=== PATIENT | female | born 1955 | race Caucasian/White ===

== ENCOUNTER 2016-10-09 13:36 | Emergency (ER) | payer SELFPAY ==
[2016-10-09] MEDS ORDERED: KETOROLAC 60 MG/2 ML VIAL IVP STA (14:21)
[2016-10-09] MEDS ORDERED: KETOROLAC 30 MG/ML VIAL ONE (14:51)
[2016-10-09] MEDS ORDERED: DEXAMETHASONE 10 MG/ML VIAL IVP STA (16:39)
[2016-10-09] MEDS ORDERED: DEXAMETHASONE 10 MG/ML VIAL ONE ×2 (16:47→16:52)
== END 2016-10-09 17:02 | disposition home or self-care (01) ==
DX: R07.89 Other chest pain (principal); M54.9 Dorsalgia, unspecified; M25.511 Pain in right shoulder; R51 Headache; F41.9 Anxiety disorder, unspecified; F43.9 Reaction to severe stress, unspecified; I25.2 Old myocardial infarction; F17.200 Nicotine dependence, unspecified, uncomplicated

== ENCOUNTER 2017-09-11 10:31 | Outpatient (CLI) | payer MEDICAID ==
[2017-09-11 11:01] LABS: MEAN CORPUSCULAR HGB CONC 33.8 g/dL (32.0-36.0); MEAN CORPUSCULAR VOLUME 88.8 fL (81.0-99.0); MEAN PLATELET VOLUME 7.4 fL (7.9-10.8); RED BLOOD COUNT 4.67 10^6/uL (4.20-5.40); RED CELL DISTRIBUTION WIDTH 12.6 % (12.0-15.0); WHITE BLOOD COUNT 7.3 x10^3/uL (4.8-10.8)
[2017-09-11 11:18] LABS: ALBUMIN/GLOBULIN RATIO 1.3 (1.0-2.2); ALKALINE PHOSPHATASE 61 IU/L (42-121); ALT ALANINE AMINOTRANSFERASE 22 IU/L (10-60); AST ASPARTATE AMINOTRANSFERASE 18 IU/L (10-42); BILIRUBIN,TOTAL 0.5 mg/dL (0.2-1.0); BUN - BLOOD UREA NITROGEN 14 mg/dL (6-20); CALCIUM 8.8 mg/dL (8.5-10.3); CARBON DIOXIDE - CO2 27 mmol/L (21-32); CHLORIDE 106 mmol/L (101-111); CHOL/HDL RATIO 3.8 (<4.4); CHOLESTEROL 200 mg/dL; CREATININE 0.6 mg/dL (0.4-1.0); GFR - MDRD 102 (>89); GLUCOSE 89 mg/dL (70-100); HDL CHOLESTEROL 52 mg/dL; LDL CHOLESTEROL,CALCULATED 120 mg/dL; LDL/HDL RATIO 2.3 (<4.4); SODIUM 138 mmol/L (135-145); URIC ACID 3.7 mg/dL (2.6-7.2); VLDL CHOLESTEROL 28 mg/dL
[2017-09-11 11:19] LABS: CRP - C-REACTIVE PROTEIN < 1.0 mg/dL (0-1.0)
[2017-09-11 12:04] LABS: RHEUMATOID FACTOR NEGATIVE (Negative)
[2017-09-13 13:56] LABS: ANA SCREEN NEGATIVE (NEGATIVE)
== END 2017-09-11 10:32 | disposition home or self-care (01) ==
LOC: LAB 10:31
PROVIDERS: ATTEND Nurse Practitioner
DX: I87.2 Venous insufficiency (chronic) (peripheral) (principal); I25.10 Atherosclerotic heart disease of native coronary artery without angina pectoris; I25.2 Old myocardial infarction; Z72.0 Tobacco use
CPT/HCPCS: 36415; 80053; 80061; 83721; 84443; 84550; 85651; 86038; 86140; 86200; 86430

== ENCOUNTER 2017-10-12 11:49 | Outpatient (CLI) | payer MEDICAID ==
--- NOTE | 2017-10-12 17:55 | XRAY Report ---
RIGHT HIP AND PELVIS: 10/12/2017 CLINICAL INDICATION: Hip pain. FINDINGS: Frontal view of the hips and pelvis and frogleg lateral view of the right hip demonstrate mild osteoarthritis. There is no evidence of acute fracture or dislocation. No radiopaque foreign body is seen in the soft tissues. IMPRESSION: MILD OSTEOARTHRITIS. TD: 10/12/2017 14:38
== END 2017-10-12 11:50 | disposition home or self-care (01) ==
LOC: DI.N 11:49
PROVIDERS: ATTEND Nurse Practitioner
DX: M16.11 Unilateral primary osteoarthritis, right hip (principal)

== ENCOUNTER 2018-06-10 11:36 | Day surgery (SDC) | payer MEDICAID ==
[2018-06-10] MEDS ORDERED: LACTATED RINGERS 1,000 ML IV ONE ×2 (12:31→13:17)
[2018-06-10] MEDS ORDERED: MIDAZOLAM 2 MG/2 ML VIAL IVP ONE (12:35)
[2018-06-10] MEDS ORDERED: fentaNYL 250 MCG/5 ML VIAL IVP ONE (12:35)
[2018-06-10 13:33] VITALS: BP 112/70
== END 2018-06-10 11:37 | disposition home or self-care (01) ==
LOC: SDS 11:36
PROVIDERS: ATTEND Surgery
PROC: 0DBN8ZZ Excision of Sigmoid Colon, Via Natural or Artificial Opening Endoscopic (ICD-10-PCS; principal; 2018-06-10 13:00)
DX: Z12.11 Encounter for screening for malignant neoplasm of colon (principal); K63.5 Polyp of colon; D12.8 Benign neoplasm of rectum; K57.30 Diverticulosis of large intestine without perforation or abscess without bleeding; K64.8 Other hemorrhoids
CPT/HCPCS: 45380; J7120

== ENCOUNTER 2018-11-29 15:10 | Outpatient (CLI) | payer MEDICAID ==
[2018-11-29 15:40] LABS: HGB - HEMOGLOBIN 13.1 g/dL (12.0-16.0); MEAN CORPUSCULAR HGB CONC 33.2 g/dL (32.0-36.0); MEAN CORPUSCULAR VOLUME 90.4 fL (81.0-99.0); MEAN PLATELET VOLUME 9.3 fL (7.9-10.8); RED BLOOD COUNT 4.37 10^6/uL (4.20-5.40); RED CELL DISTRIBUTION WIDTH 12.8 % (12.0-15.0)
[2018-11-29 16:46] LABS: CRP - C-REACTIVE PROTEIN < 1.0 mg/dL (0-1.0)
[2018-11-29 20:10] LABS: RHEUMATOID FACTOR NEGATIVE (Negative)
[2018-12-02 14:23] LABS: ANA SCREEN NEGATIVE (NEGATIVE)
== END 2018-11-29 15:11 | disposition home or self-care (01) ==
LOC: LAB 15:10 → DI 15:11
PROVIDERS: ATTEND Family Medicine
DX: M79.641 Pain in right hand (principal); R94.6 Abnormal results of thyroid function studies
CPT/HCPCS: 36415; 84443; 84550; 85027; 85651; 86038; 86140; 86200; 86430

== ENCOUNTER 2018-12-04 15:17 | Outpatient (CLI) | payer MEDICAID ==
--- NOTE | 2018-12-05 09:53 | XRAY Report ---
Reason: HAND JOINT PAIN,LEFT Procedure Date: 12/04/2018 Accession Number: [id number] / [id number] Procedure: XR - Hand 3 View LT CPT Code: FULL RESULT: EXAM: LEFT HAND RADIOGRAPHY EXAM DATE: 12/04/2018 03:28 PM. CLINICAL HISTORY: Hand joint pain, left. COMPARISON: None. TECHNIQUE: 3 views. FINDINGS: Bones: Apparent irregularity of the distal scaphoid is felt to be overlap from the trapezoid. No fractures or bone lesions. Joints: Moderate to severe degenerative changes in the triscaphe distribution including the first carpometacarpal articulation, second carpometacarpal articulation and the triscaphe joint itself. Soft Tissues: Normal. No soft tissue swelling. 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 [facility]
== END 2018-12-04 15:18 | disposition home or self-care (01) ==
LOC: DI 15:17
PROVIDERS: ATTEND Family Medicine
DX: M19.042 Primary osteoarthritis, left hand (principal); M18.12 Unilateral primary osteoarthritis of first carpometacarpal joint, left hand